=== PATIENT | female | born 1985 | race Caucasian/White ===

== ENCOUNTER 2017-02-28 08:42 | Inpatient (IN) | payer BC ==
[2017-02-28] MEDS ORDERED: Nalbuphine 10 MG/1 ML Vial IVPUSH PRN (08:49)
[2017-02-28] MEDS ORDERED: Butorphanol 1 MG/ML SDV IVPUSH PRN (08:49)
[2017-02-28] MEDS ORDERED: Lidocaine 1% 50 ML MDV INJECT PRN (08:49)
[2017-02-28] MEDS ORDERED: Water For Irrigation,Sterile 1,000 ML Container IRR PRN (08:49)
[2017-02-28] MEDS ORDERED: Sodium Chloride 0.9% 2.5 ML Syringe FLUSH PRN (08:49)
[2017-02-28] MEDS ORDERED: Misoprostol 200 MCG Tab PO PRN (08:49)
[2017-02-28] MEDS ORDERED: Sodium Chloride 0.9% 10 ML Syringe FLUSH PRN (08:49)
[2017-02-28] MEDS ORDERED: Carboprost Tromethamine 250 MCG/1 ML Amp IM PRN (08:49)
[2017-02-28] MEDS ORDERED: Methylergonovine 0.2 MG/1 ML Amp IM PRN (08:49)
[2017-02-28] MEDS ORDERED: Terbutaline 1 MG/ML SDV SUBCUT PRN (08:51)
[2017-02-28] MEDS ORDERED: Misoprostol 25 MCG (1/4 of 100 MCG) Tab VAG PRN (08:51)
[2017-02-28] MEDS ORDERED: Misoprostol 25 MCG (1/4 of 100 MCG) Tab VAG SCH (09:00)
[2017-02-28] MEDS ORDERED: Oxytocin/0.9 % Sodium Chloride 30 UNIT/500 ML BAG IV SCH (09:00)
[2017-02-28] MEDS: Lactated Ringers 1,000 ML IV SCH ×2 (14:56→16:38)
[2017-02-28] MEDS ORDERED: fentaNYL 100 MCG/2 ML SDV ONE (15:07)
[2017-02-28] MEDS ORDERED: Ropivacaine 100 ML ONE (15:07)
--- NOTE | 2017-02-28 16:29 | PCM.PREANE ---
Preanesthetic Assessment - Anesthesia/Transfusion/Family Hx Anesthesia History: Prior Anesthesia Without Reaction Family History of Anesthesia Reaction: No Transfusion History: No Prior Transfusion(s) - Review of Systems General: No Symptoms Pulmonary: No Symptoms Cardiovascular: No Symptoms Gastrointestinal: No Symptoms Neurological: No Symptoms (no Heparin for 30 hours) - Physical Assessment Height: 5 ft 6.5 in Weight: 212 lb Airway Class: Mallampati = 2 Dentition: Reports: Normal Dentition Thyro-Mental Finger Breadths: 3 Mouth Opening Finger Breadths: 3 ROM/Head Extension: Full Lungs: Clear to Auscultation, Normal Respiratory Effort Cardiovascular: Regular Rate, Regular Rhythm - Lab Values: Laboratory Last Values WBC 7.36 K/uL (4.0-11.0) 02/28/17 09:00 RBC 4.09 M/uL (4.30-5.90) L 02/28/17 09:00 Hgb 12.7 g/dL (12.0-16.0) 02/28/17 09:00 Hct 37.9 % (36.0-46.0) 02/28/17 09:00 MCV 92.7 fL (80.0-98.0) 02/28/17 09:00 MCH 31.1 pg (27.0-32.0) 02/28/17 09:00 MCHC 33.5 g/dL (31.0-37.0) 02/28/17 09:00 RDW Std Deviation 51.2 fl (28.0-62.0) 02/28/17 09:00 RDW Coeff of Willie 15 % (11.0-15.0) 02/28/17 09:00 Plt Count 233 K/uL (150-400) 02/28/17 09:00 MPV 10.00 fL (7.40-12.00) 02/28/17 09:00 Nucleated RBC % 0.0 /100WBC 02/28/17 09:00 Nucleated RBCs # 0 K/uL 02/28/17 09:00 Blood Type O POSITIVE 02/28/17 09:00 Antibody Screen NEGATIVE 02/28/17 09:00 - Allergies Allergies/Adverse Reactions: Allergies Allergy/AdvReac Type Severity Reaction Status Date / Time No Known Allergies Allergy Verified 02/22/15 22:27 - Acknowledgements Anesthesia Type Planned: Epidural Pt an Appropriate Candidate for the Planned Anesthesia: Yes Alternatives and Risks of Anesthesia Discussed w Pt/Guardian: Yes Pt/Guardian Understands and Agrees with Anesthesia Plan: Yes Additional Comments: PCEA for L&D. Patient has had them in the past and has done well. She is scheduled for induction of labor. 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: Psychiatric History: Reports: Other (See Below) Other Psychiatric History: dyslexia Hematologic History: Reports: Other (See Below) 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 - Infectious Disease History Infectious Disease History: Reports: Chicken Pox, Influenza - Past Surgical History HEENT Surgical History: Reports: Other (See Below) Other HEENT Surgeries/Procedures: wisdom teeth extracted Musculoskeletal Surgical History: Reports: Other (See Below) Other Musculoskeletal Surgeries/Procedures:: fatty lypoma removed right shoulder muscle-benign - SUBSTANCE USE Smoking Status *Q: Never Smoker Second Hand Smoke Exposure: No Recreational Drug Use History: No - HOME MEDS Home Medications: Home Meds Heparin Sodium,Porcine/PF [Heparin 1,000 Unit/10 (100/ml)] 5,000 unit SUBCUT 06/05 [History] Vit No.129/Iron/FA [ One Daily Tablet] 1 each PO 02/23/15 [ History] Acetaminophen [Tylenol Extra Strength] 1,000 mg PO Q4H PRN #30 tablet 02/24/15 [ Rx] Benzocaine/Menthol [Dermoplast Pain Relief 20%-0.5% [place]] 78 gm TOP ASDIRECTED PRN #1 canister 02/24/15 [Rx] Docusate Sodium [Colace] 100 mg PO BID PRN #30 cap 02/24/15 [Rx] Ibuprofen [Motrin] 400 mg PO Q4H PRN #30 tablet 02/24/15 [Rx] Lanolin [Lansinoh HPA] 7 g TOP ASDIRECTED PRN #1 tube 02/24/15 [Rx] - CURRENT (IN HOUSE) MEDS Current Meds: Current Medications Butorphanol Tartrate (Stadol) 1 mg IVPUSH Q1H PRN PRN Reason: Pain Carboprost Tromethamine (Hemabate Ds) 250 mcg IM ASDIRECTED PRN PRN Reason: Post Hemorrhage Lactated Ringer's (Ringers, Lactated) 1,000 mls @ 150 mls/hr IV ASDIRECTED ARNEL Last Admin: 02/28/17 14:56 Dose: 999 mls/hr Oxytocin/Sodium Chloride (Oxytocin 30 Unit/500 Ml-Ns) 30 unit in 500 mls @ 2 mls/hr IV TITRATE ARNEL; 2 MUNITS/MIN PRN Reason: Protocol Last Titration: 02/28/17 16:23 Dose: 4 munits/min, 4 mls/hr Lidocaine HCl (Xylocaine 1%) 50 ml INJECT .ONCE PRN PRN Reason: Laceration repair Methylergonovine Maleate (Methergine) 0.2 mg IM ASDIRECTED PRN PRN Reason: Post Hemorrhage Misoprostol (Cytotec) 200 mcg PO .ONCE PRN PRN Reason: Post Hemorrhage Misoprostol (Cytotec) 25 mcg VAG .ONCE ARNEL Last Admin: 02/28/17 09:40 Dose: 25 mcg Misoprostol (Cytotec) 25 mcg VAG Q4H PRN PRN Reason: Cervical Ripening Nalbuphine HCl (Nubain) 10 mg IVPUSH Q1H PRN PRN Reason: Pain (severe 7-10) Sodium Chloride (Saline Flush) 10 ml FLUSH ASDIRECTED PRN PRN Reason: Keep Vein Open Sodium Chloride (Saline Flush) 2.5 ml FLUSH ASDIRECTED PRN PRN Reason: Keep Vein Open Sterile Water (Sterile Water For Irrigation) 1,000 ml IRR ASDIRECTED PRN PRN Reason: delivery Terbutaline Sulfate (Brethine) 0.25 mg SUBCUT ASDIRECTED PRN PRN Reason: Tacysystole Discontinued Medications Fentanyl (Sublimaze) Confirm Administered Dose 100 mcg .ROUTE .STK-MED ONE Stop: 02/28/17 15:08 Ropivacaine (Naropin 0.2%) Confirm Administered Dose 100 mls @ as directed .ROUTE .STK-MED ONE Stop: 02/28/17 15:08
[2017-02-28] MEDS ORDERED: oxyCODONE 5 MG Tab PO PRN (20:41)
[2017-02-28] MEDS ORDERED: Witch Hazel Medicated Pads 40/Jar TOP PRN (20:41)
[2017-02-28] MEDS ORDERED: Docusate Sodium 100 MG Cap PO PRN (20:41)
[2017-02-28] MEDS ORDERED: Lanolin 100% Cream 7 GM Tube TOP PRN (20:41)
[2017-02-28] MEDS ORDERED: Bisacodyl 10 MG Supp RECTAL PRN (20:41)
[2017-02-28] MEDS ORDERED: Benzocaine/Menthol 20%-0.5% Spray 78 GM Cannister TOP PRN (20:41)
[2017-02-28] MEDS ORDERED: Acetaminophen 500 MG Tab PO PRN (20:41)
[2017-02-28] MEDS ORDERED: Ibuprofen 800 MG Tab PO PRN (20:41)
[2017-02-28] MEDS ORDERED: Ibuprofen 400 MG Tab PO PRN (20:41)
--- NOTE | 2017-03-01 01:12 | OR ---
SURGEON: Cherie Magallanes MD DATE OF PROCEDURE: 02/28/2017 PREOPERATIVE DIAGNOSES: 1. Term at 39 weeks' and 6 days'. 2. Positive thrombophilia screen. POSTOPERATIVE DIAGNOSES: 1. Term at 39 weeks' and 6 days'. 2. Positive thrombophilia screen. 3. Delivered. PROCEDURE: Spontaneous vaginal delivery. ANESTHESIA: Epidural. ESTIMATED BLOOD LOSS: 200 mL. COMPLICATIONS: None. DISPOSITION: Mother and baby stable in Labor and Delivery room, bonding. FINDINGS: Male , 3550 grams, score 8 and 8 at one and five minutes respectively. Clear amniotic fluid. Loose nuchal cord. Grossly normal placenta with 3-vessel cord. Intact perineum. BRIEF HISTORY: Nitza is a 31-year-old, G4, P2-0-1-2 who was admitted for elective induction of labor at 39 weeks' and 6 days' for positive thrombophilia screen, heterozygous for factor V Leiden, and MTHFR. This screening was performed a couple of years ago during her 1st due to positive family history of multiple members with both arterial and venous thrombosis. She has been on prophylactic anticoagulation based on perinatologist recommendation, which she tolerated well with no adverse effect. Her last dose of heparin was more than 12 hours prior to her induction of labor. She was admitted at about 9 o'clock this morning and she received 1 dose of Cytotec at 25 mcg and when she was reexamined 4 hours later she had made some cervical change and was having regular contractions, Oxytocin was then commenced, and she received epidural for pain management. Artificial rupture of membranes was performed with clear amniotic fluid noted. Thereafter, she progressed to full dilatation and commenced active pushing. She pushed quite well bringing the baby's head down to a +4 station over the next 3 contractions and was setup for delivery in modified dorsal lithotomy position. DESCRIPTION OF PROCEDURE: She had a spontaneous vaginal delivery of a live male in right occipitoposterior position, loose nuchal cord at delivery which was easily reduced, clear amniotic fluid at delivery. Anterior and posterior shoulders and the rest of the baby were delivered without difficulty. Baby was vigorous and cried spontaneously at . The oropharynx and the nostrils were bulb suctioned on the perineum and the baby was delivered onto the maternal abdomen. Delayed cord clamping was performed and the cord was subsequently cut by the grandmother of the baby. With delivery of the , oxytocin infusion was changed to titration for active management of 3rd stage of labor. Cord blood and gas samples were obtained. The placenta was delivered by controlled cord traction appeared to be complete and intact. Examination of the perineum revealed no lacerations. Vigorous uterine massage was performed and the uterus was found to be well-contracted below the umbilicus. The patient tolerated the procedure well. Sponge, instrument, and needle counts were correct at the end of the delivery. ADUMVIV / MODL /[id number] MTDD
--- NOTE | 2017-03-01 07:30 | PCM48HPAN ---
Post Anesthesia Note - EVALUATION WITHIN 48HRS OF ANESTHETIC Vital Signs in Normal Range: Yes Patient Participated in Evaluation: Yes Respiratory Function Stable: Yes Airway Patent: Yes Cardiovascular Function Stable: Yes Hydration Status Stable: Yes Pain Control Satisfactory: Yes Nausea and Vomiting Control Satisfactory: Yes Mental Status Recovered: Yes
--- NOTE | 2017-03-01 11:25 | PCM.PNPP ---
- General Info Date of Service: 03/01/17 Functional Status: Reports: Pain Controlled, Tolerating Diet, Ambulating, Urinating - Review of Systems General: Denies: Fever, Chills HEENT: Denies: Headaches Pulmonary: Denies: Shortness of Breath, Pleuritic Chest Pain Cardiovascular: Denies: Chest Pain, Palpitations, Dyspnea on Exertion Gastrointestinal: Denies: Abdominal Pain Genitourinary: Denies: Dysuria, Incontinence, Flank Pain Psychiatric: Denies: Depression, Mood Lability, Anxiety - General Info Date of Service: 03/01/17 - Patient Data Vital Signs - Most Recent: Last Vital Signs Temp 36.6 C 03/01/17 07:20 Pulse 68 03/01/17 07:20 Resp 18 03/01/17 07:20 BP 126/57 L 03/01/17 07:20 Pulse Ox 96 03/01/17 07:20 Weight - Most Recent: 212 lb Lab Results - Last 24 Hours: Laboratory Results - last 24 hr 03/01/17 Range/Units 05:09 Hgb 12.3 (12.0-16.0) g/dL Hct 36.8 (36.0-46.0) % Med Orders - Current: Current Medications Acetaminophen (Tylenol Extra Strength) 500 mg PO Q4H PRN PRN Reason: Pain Acetaminophen (Tylenol Extra Strength) 1,000 mg PO Q4H PRN PRN Reason: Pain Benzocaine/Menthol (Dermoplast Pain Relief 20%-0.5% [place]) 78 gm TOP ASDIRECTED PRN PRN Reason: Perineal Comfort Measure Last Admin: 03/01/17 05:24 Dose: 1 applic Bisacodyl (Dulcolax) 10 mg RECTAL .ONCE PRN PRN Reason: Constipation Docusate Sodium (Colace) 100 mg PO BID PRN PRN Reason: Constipation Emollient Ointment (Lansinoh Hpa) 0 gm TOP ASDIRECTED PRN PRN Reason: Sore Nipples Last Admin: 03/01/17 05:23 Dose: 1 applic Ibuprofen (Motrin) 400 mg PO Q4H PRN PRN Reason: Pain Ibuprofen (Motrin) 800 mg PO Q6H PRN PRN Reason: Pain Last Admin: 03/01/17 05:24 Dose: 800 mg Oxycodone HCl (Oxycodone) 5 mg PO Q2H PRN PRN Reason: Pain Witch Shanon (Tucks) 1 pad TOP ASDIRECTED PRN PRN Reason: comfort care Last Admin: 03/01/17 05:23 Dose: 1 applic Discontinued Medications Butorphanol Tartrate (Stadol) 1 mg IVPUSH Q1H PRN PRN Reason: Pain Carboprost Tromethamine (Hemabate Ds) 250 mcg IM ASDIRECTED PRN PRN Reason: Post Hemorrhage Fentanyl (Sublimaze) Confirm Administered Dose 100 mcg .ROUTE .[employer] [facility] ONE Stop: 02/28/17 15:08 Lactated Ringer's (Ringers, Lactated) 1,000 mls @ 150 mls/hr IV ASDIRECTED ARNEL Last Admin: 02/28/17 16:38 Dose: 150 mls/hr Oxytocin/Sodium Chloride (Oxytocin 30 Unit/500 Ml-Ns) 30 unit in 500 mls @ 2 mls/hr IV TITRATE ARNEL; 2 MUNITS/MIN PRN Reason: Protocol Last Titration: 02/28/17 20:45 Dose: Infused Ropivacaine (Naropin 0.2%) Confirm Administered Dose 100 mls @ as directed .ROUTE .[employer] ONE Stop: 02/28/17 15:08 Lidocaine HCl (Xylocaine 1%) 50 ml INJECT .ONCE PRN PRN Reason: Laceration repair Methylergonovine Maleate (Methergine) 0.2 mg IM ASDIRECTED PRN PRN Reason: Post Hemorrhage Misoprostol (Cytotec) 200 mcg PO .ONCE PRN PRN Reason: Post Hemorrhage Misoprostol (Cytotec) 25 mcg VAG .ONCE ARNEL Last Admin: 02/28/17 09:40 Dose: 25 mcg Misoprostol (Cytotec) 25 mcg VAG Q4H PRN PRN Reason: Cervical Ripening Nalbuphine HCl (Nubain) 10 mg IVPUSH Q1H PRN PRN Reason: Pain (severe 7-10) Sodium Chloride (Saline Flush) 10 ml FLUSH ASDIRECTED PRN PRN Reason: Keep Vein Open Sodium Chloride (Saline Flush) 2.5 ml FLUSH ASDIRECTED PRN PRN Reason: Keep Vein Open Sterile Water (Sterile Water For Irrigation) 1,000 ml IRR ASDIRECTED PRN PRN Reason: delivery Last Admin: 02/28/17 20:52 Dose: 1,000 ml Terbutaline Sulfate (Brethine) 0.25 mg SUBCUT ASDIRECTED PRN PRN Reason: Tacysystole - Infant Interaction Infant Interaction: Holding Infant Feeding: Breastfed Infant; Nursed Well, Continues to Breastfeed Support Person: - Recovery Exam Fundal Tone: Firm Fundal Level: 2 Fingerbreadths Below Umbilicus Fundal Placement: Midline Lochia Amount: Scant Lochia Color: Rubra/Red Perineum Description: Intact, Minimal Bruising/Swelling Episiotomy/Laceration: None Bladder Status: Voiding Urinary Elimination: Voided - Exam General: Alert, Oriented Neck: Supple Lungs: Clear to Auscultation, Normal Respiratory Effort Cardiovascular: Regular Rate, Regular Rhythm GI/Abdominal Exam: Normal Bowel Sounds Psy/Mental Status: Alert, Normal Affect, Normal Mood - Problem List & Annotations (1) Vaginal delivery SNOMED Code(s): 598048215 Code(s): O80 - ENCOUNTER FOR FULL-TERM UNCOMPLICATED DELIVERY Status: Acute Current Visit: No - Problem List Review Problem List Initiated/Reviewed/Updated: Yes - My Orders Last 24 Hours: My Active Orders 02/28/17 20:41 Patient Status [ADT] Routine May Shower [RC] ASDIRECTED Up ad [place] [RC] ASDIRECTED Vital Signs [RC] PER UNIT ROUTINE Acetaminophen [Tylenol Extra Strength] 1,000 mg PO Q4H PRN Acetaminophen [Tylenol Extra Strength] 500 mg PO Q4H PRN Benzocaine/Menthol [Dermoplast Pain Relief 20%-0.5% [place]] 78 gm TOP ASDIRECTED PRN Bisacodyl [Dulcolax] 10 mg RECTAL .ONCE PRN Docusate Sodium [Colace] 100 mg PO BID PRN Ibuprofen [Motrin] 400 mg PO Q4H PRN Ibuprofen [Motrin] 800 mg PO Q6H PRN Lanolin [Lansinoh HPA] See Dose Instructions TOP ASDIRECTED PRN Witch Shanon [Tucks] 1 pad TOP ASDIRECTED PRN oxyCODONE 5 mg PO Q2H PRN Assess Lochia [WOMSER] Per Unit Routine Assess Uterine Involution [WOMSER] Per Unit Routine Breast Pump [WOMSER] Per Unit Routine Peripheral IV Discontinue [OM.PC] Routine Resuscitation Status Routine 02/28/17 20:42 Perineal Care [OM.PC] Per Unit Routine 03/01/17 Breakfast Regular Diet [DIET] - Assessment Assessment:: PPD#1 s/p , stable and afebrile - Plan Plan:: Discharge instructions given Nothing in the vagina for 6 weeks Bleeding and infection precautions reviewed Continue PNV whilst breast feeding blues and depression S/S reviewed Follow up in 6 weeks for ppv
[2017-03-01] MEDS: Acetaminophen 500 MG Tab PO PRN ×2 (15:03→19:44)
[2017-03-01 19:52] VITALS: BP 129/65
== END 2017-03-01 22:45 | disposition home or self-care (01) | DRG 560 ==
LOC: MW.OBCHECK 08:42 → MW.OB 08:47 → MW.OBCHECK 08:49 → MW.OB 08:49 → OBSVTOIN 20:16
PROVIDERS: ADMIT Obstetrics & Gynecology; ATTEND Obstetrics & Gynecology
PROC: 10E0XZZ Delivery of Products of Conception, External Approach (ICD-10-PCS; principal; 2017-02-28)
PROC: 3E0P7VZ Introduction of Hormone into Female Reproductive, Via Natural or Artificial Opening (ICD-10-PCS; 2017-02-28)
PROC: 10907ZC Drainage of Amniotic Fluid, Therapeutic from Products of Conception, Via Natural or Artificial Opening (ICD-10-PCS; 2017-02-28)
PROC: 3E033VJ Introduction of Other Hormone into Peripheral Vein, Percutaneous Approach (ICD-10-PCS; 2017-02-28)
DX: O99.12 Other diseases of the blood and blood-forming organs and certain disorders involving the immune mechanism complicating childbirth (principal); D68.51 Activated protein C resistance; Z3A.39 39 weeks gestation of pregnancy; Z37.0 Single live birth
CPT/HCPCS: 36415; 51702; 59025; 59409; 85014; 85018; 85027; 86850; 86900; 86901; A9270-GY; J2590; J7120

== ENCOUNTER 2019-03-19 05:10 | Inpatient (IN) | payer BC ==
[2019-03-19] MEDS ORDERED: Sodium Chloride 0.9% 10 ML SDV IV PRN (05:14)
[2019-03-19] MEDS ORDERED: Misoprostol 200 MCG Tab PO PRN (05:14)
[2019-03-19] MEDS ORDERED: Ondansetron 4 MG/2 ML SDV IVPUSH PRN (05:14)
[2019-03-19] MEDS ORDERED: Tranexamic Acid 1,000 MG in Sodium Chloride 0.9% 100 ML IV PRN (05:14)
[2019-03-19] MEDS ORDERED: Water For Irrigation,Sterile 1,000 ML Container IRR PRN (05:14)
[2019-03-19] MEDS ORDERED: Carboprost Tromethamine 250 MCG/1 ML Amp IM PRN (05:14)
[2019-03-19] MEDS ORDERED: Butorphanol 1 MG/ML SDV IVPUSH PRN (05:14)
[2019-03-19] MEDS ORDERED: Terbutaline 1 MG/ML SDV SUBCUT PRN (05:14)
[2019-03-19] MEDS ORDERED: Lidocaine 1% 50 ML MDV INJECT PRN (05:14)
[2019-03-19] MEDS ORDERED: Sodium Chloride 0.9% 10 ML Syringe FLUSH PRN (05:14)
[2019-03-19] MEDS ORDERED: Methylergonovine 0.2 MG/1 ML Amp IM PRN (05:14)
[2019-03-19] MEDS ORDERED: Sodium Chloride 0.9% 2.5 ML Syringe FLUSH PRN (05:14)
[2019-03-19] MEDS ORDERED: Nalbuphine 10 MG/1 ML Vial IVPUSH PRN (05:14)
[2019-03-19] MEDS ORDERED: Oxytocin/0.9 % Sodium Chloride 30 UNIT/500 ML BAG IV SCH ×2 (05:15)
[2019-03-19] MEDS: Lactated Ringers 1,000 ML IV SCH ×3 (06:47→10:25)
[2019-03-19] MEDS ORDERED: fentaNYL 100 MCG/2 ML SDV ONE (07:11)
[2019-03-19] MEDS ORDERED: Ropivacaine HCl/PF 100 ML ONE (07:12)
--- NOTE | 2019-03-19 07:37 | PCM.PREANE ---
Preanesthetic Assessment - Anesthesia/Transfusion/Family Hx Anesthesia History: Prior Anesthesia Without Reaction Family History of Anesthesia Reaction: No Transfusion History: No Prior Transfusion(s) Other Type of Transfusion Reaction: Patient has known Factor V Deficiency. Has had prior epidurals (uneventful) - Physical Assessment NPO Status Date: 03/19/19 NPO Status Time: 00:05 Height: 1.68 m Weight: 98.883 kg ASA Class: 1 - Lab Values: Laboratory Last Values WBC 6.52 K/uL (4.0-11.0) 03/19/19 05:36 RBC 4.02 M/uL (4.30-5.90) L 03/19/19 05:36 Hgb 12.6 g/dL (12.0-16.0) 03/19/19 05:36 Hct 37.3 % (36.0-46.0) 03/19/19 05:36 MCV 92.8 fL (80.0-98.0) 03/19/19 05:36 MCH 31.3 pg (27.0-32.0) 03/19/19 05:36 MCHC 33.8 g/dL (31.0-37.0) 03/19/19 05:36 RDW Std Deviation 49.6 fl (28.0-62.0) 03/19/19 05:36 RDW Coeff of Willie 15 % (11.0-15.0) 03/19/19 05:36 Plt Count 245 K/uL (150-400) 03/19/19 05:36 MPV 10.30 fL (7.40-12.00) 03/19/19 05:36 Nucleated RBC % 0.0 /100WBC 03/19/19 05:36 Nucleated RBCs # 0 K/uL 03/19/19 05:36 Blood Type O POSITIVE 03/19/19 05:36 Antibody Screen NEGATIVE 03/19/19 05:36 - Allergies Allergies/Adverse Reactions: Allergies Allergy/AdvReac Type Severity Reaction Status Date / Time No Known Allergies Allergy Verified 09/14/17 09:44 - Acknowledgements Anesthesia Type Planned: Epidural Pt an Appropriate Candidate for the Planned Anesthesia: Yes Alternatives and Risks of Anesthesia Discussed w Pt/Guardian: Yes Pt/Guardian Understands and Agrees with Anesthesia Plan: Yes PreAnesthesia Questionnaire HEENT History: Reports: Impaired Vision, Other (See Below) Other HEENT History: glasses 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: Psychiatric History: Reports: Other (See Below) Other Psychiatric History: dyslexia Hematologic History: Reports: Other (See Below) 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 - Infectious Disease History Infectious Disease History: Reports: Chicken Pox - Past Surgical History HEENT Surgical History: Reports: Other (See Below) Other HEENT Surgeries/Procedures: wisdom teeth extracted Musculoskeletal Surgical History: Reports: Other (See Below) Other Musculoskeletal Surgeries/Procedures:: fatty lypoma removed right shoulder muscle-benign Dermatological Surgical History: Reports: Other (See Below) - SUBSTANCE USE Smoking Status *Q: Never Smoker Second Hand Smoke Exposure: No Recreational Drug Use History: No - HOME MEDS Home Medications: Home Meds Vit No.129/Iron/FA [ One Daily Tablet] 1 each PO DAILY [History] - CURRENT (IN HOUSE) MEDS Current Meds: Current Medications Butorphanol Tartrate (Stadol) 1 mg IVPUSH Q1H PRN PRN Reason: Pain Carboprost Tromethamine (Hemabate Ds) 250 mcg IM ASDIRECTED PRN PRN Reason: Post Hemorrhage Lactated Ringer's (Ringers, Lactated) 1,000 mls @ 150 mls/hr IV ASDIRECTED ARNEL Last Infusion: 03/19/19 06:50 Dose: 999 mls/hr Oxytocin/Sodium Chloride (Oxytocin 30 Unit/500 Ml-Ns) 30 unit in 500 mls @ 500 mls/hr IV TITRATE ARNEL Oxytocin/Sodium Chloride (Oxytocin 30 Unit/500 Ml-Ns) 30 unit in 500 mls @ 2 mls/hr IV TITRATE ARNEL; Protocol Tranexamic Acid 1,000 mg/ (Sodium Chloride) 110 mls @ 660 mls/hr IV ONETIME PRN PRN Reason: Bleeding Lidocaine HCl (Xylocaine 1%) 50 ml INJECT ONETIME PRN PRN Reason: Laceration repair Methylergonovine Maleate (Methergine) 0.2 mg IM ASDIRECTED PRN PRN Reason: Post Hemorrhage Misoprostol (Cytotec) 200 mcg PO ONETIME PRN PRN Reason: Post Hemorrhage Nalbuphine HCl (Nubain) 10 mg IVPUSH Q1H PRN PRN Reason: Pain (severe 7-10) Ondansetron HCl (Zofran) 4 mg IVPUSH Q6H PRN PRN Reason: Nausea/Vomiting Sodium Chloride (Saline Flush) 10 ml FLUSH ASDIRECTED PRN PRN Reason: Keep Vein Open Sodium Chloride (Saline Flush) 2.5 ml FLUSH ASDIRECTED PRN PRN Reason: Keep Vein Open Sodium Chloride (Normal Saline) 10 ml IV ASDIRECTED PRN PRN Reason: IV Use Sterile Water (Sterile Water For Irrigation) 1,000 ml IRR ASDIRECTED PRN PRN Reason: delivery Terbutaline Sulfate (Brethine) 0.25 mg SUBCUT ASDIRECTED PRN PRN Reason: Tacysystole Discontinued Medications Fentanyl (Sublimaze) Confirm Administered Dose 100 mcg .ROUTE .STK-MED ONE Stop: 03/19/19 07:12 Ropivacaine (Naropin 0.2%) Confirm Administered Dose 100 mls @ as directed .ROUTE .STK-MED ONE Stop: 03/19/19 07:13
--- NOTE | 2019-03-19 07:40 | PCM.PRNOTE ---
- Free Text/Narrative Note: Anes Note. Patient requests epidural for L&D> Sitting position, level L3-L4 midline approach. Sterile technique. Chloraprep scrub to lumbar area. Sterile fenestrated drape applied. Epidural space easily achieved using INDER technique. INDER at 5 cm. Cath threaded 5 cm with ease. Cath secured at skin at 11 cm using clear adhesive sterile dressing. 0727 test 3 cc 1.5% lido with epi negative. 0730 Load 10 cc 0.2% ropivicaine with 1 mcg cc fentanyl in slow divided doses. 0735 pump started wtih 90 cc same solution at 8 cc hr with 6 cc q 20 minutes prn bolus. Neli well. 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
[2019-03-19] MEDS ORDERED: oxyCODONE 5 MG Tab PO PRN (14:35)
[2019-03-19] MEDS ORDERED: Bisacodyl 10 MG Supp RECTAL PRN (14:35)
[2019-03-19] MEDS ORDERED: Acetaminophen 500 MG Tab PO PRN ×2 (14:35)
[2019-03-19] MEDS ORDERED: Lanolin 100% Cream 7 GM Tube TOP PRN (14:35)
[2019-03-19] MEDS ORDERED: Docusate Sodium 100 MG Cap PO PRN (14:35)
[2019-03-19] MEDS ORDERED: Ibuprofen 400 MG Tab PO PRN (14:35)
[2019-03-19] MEDS ORDERED: Benzocaine/Menthol 20%-0.5% Spray 78 GM Cannister TOP PRN (14:35)
[2019-03-19] MEDS ORDERED: Witch Hazel Medicated Pads 40/Jar TOP PRN (14:35)
--- NOTE | 2019-03-19 14:43 | PCM.DEL ---
L & D Note - General Info Date of Service: 03/19/19 Mother's Due Date: 02/23/19 - Delivery Note Labor: Spontaneous, Augmented by Oxytocin Delivery Outcome: Livebirth Presentation: Left Occiput Anterior (WILL) Nuchal Cord: None Anesthesia Type: Epidural Amniotic Fluid Description: Clear Episiotomy Type: None Laceration: None Placenta: Intact Resuscitation Needed: No Score 1 min: 8 Score 5 min: 9 Delivery Comments (Free Text/Narrative):: Live female delivered 209pm , 8/9 , weight 4120g - General Info Date of Service: 03/19/19 - Patient Data Weight - Most Recent: 98.883 kg Lab Results Last 24 Hours: Laboratory Results - last 24 hr 03/19/19 03/19/19 Range/Units 05:36 05:36 WBC 6.52 (4.0-11.0) K/uL RBC 4.02 L (4.30-5.90) M/uL Hgb 12.6 (12.0-16.0) g/dL Hct 37.3 (36.0-46.0) % MCV 92.8 (80.0-98.0) fL MCH 31.3 (27.0-32.0) pg MCHC 33.8 (31.0-37.0) g/dL RDW Std Deviation 49.6 (28.0-62.0) fl RDW Coeff of Willie 15 (11.0-15.0) % Plt Count 245 (150-400) K/uL MPV 10.30 (7.40-12.00) fL Nucleated RBC % 0.0 /100WBC Nucleated RBCs # 0 K/uL Blood Type O POSITIVE Antibody Screen NEGATIVE Med Orders - Current: Current Medications Acetaminophen (Tylenol Extra Strength) 500 mg PO Q4H PRN PRN Reason: Pain Acetaminophen (Tylenol Extra Strength) 1,000 mg PO Q4H PRN PRN Reason: Pain Benzocaine/Menthol (Dermoplast Pain Relief 20%-0.5% [place]) 78 gm TOP ASDIRECTED PRN PRN Reason: Perineal Comfort Measure Bisacodyl (Dulcolax) 10 mg RECTAL ONETIME PRN PRN Reason: Constipation Butorphanol Tartrate (Stadol) 1 mg IVPUSH Q1H PRN PRN Reason: Pain Carboprost Tromethamine (Hemabate Ds) 250 mcg IM ASDIRECTED PRN PRN Reason: Post Hemorrhage Docusate Sodium (Colace) 100 mg PO BID PRN PRN Reason: Constipation Emollient Ointment (Lansinoh Hpa) 0 gm TOP ASDIRECTED PRN PRN Reason: Sore Nipples Lactated Ringer's (Ringers, Lactated) 1,000 mls @ 150 mls/hr IV ASDIRECTED ARNEL Last Admin: 03/19/19 10:25 Dose: 150 mls/hr Oxytocin/Sodium Chloride (Oxytocin 30 Unit/500 Ml-Ns) 30 unit in 500 mls @ 500 mls/hr IV TITRATE [facility] Last Admin: 03/19/19 14:19 Dose: 500 mls/hr Oxytocin/Sodium Chloride (Oxytocin 30 Unit/500 Ml-Ns) 30 unit in 500 mls @ 2 mls/hr IV TITRATE [facility]; Protocol Last Titration: 03/19/19 12:25 Dose: 12 munits/min, 12 mls/hr Tranexamic Acid 1,000 mg/ (Sodium Chloride) 110 mls @ 660 mls/hr IV ONETIME PRN PRN Reason: Bleeding Ibuprofen (Motrin) 400 mg PO Q4H PRN PRN Reason: Pain Ibuprofen (Motrin) 800 mg PO Q6H PRN PRN Reason: Pain Lidocaine HCl (Xylocaine 1%) 50 ml INJECT ONETIME PRN PRN Reason: Laceration repair Methylergonovine Maleate (Methergine) 0.2 mg IM ASDIRECTED PRN PRN Reason: Post Hemorrhage Misoprostol (Cytotec) 200 mcg PO ONETIME PRN PRN Reason: Post Hemorrhage Nalbuphine HCl (Nubain) 10 mg IVPUSH Q1H PRN PRN Reason: Pain (severe 7-10) Ondansetron HCl (Zofran) 4 mg IVPUSH Q6H PRN PRN Reason: Nausea/Vomiting Last Admin: 03/19/19 13:47 Dose: 4 mg Oxycodone HCl (Oxycodone) 5 mg PO Q2H PRN PRN Reason: Pain Sodium Chloride (Saline Flush) 10 ml FLUSH ASDIRECTED PRN PRN Reason: Keep Vein Open Sodium Chloride (Saline Flush) 2.5 ml FLUSH ASDIRECTED PRN PRN Reason: Keep Vein Open Sodium Chloride (Normal Saline) 10 ml IV ASDIRECTED PRN PRN Reason: IV Use Sterile Water (Sterile Water For Irrigation) 1,000 ml IRR ASDIRECTED PRN PRN Reason: delivery Last Admin: 03/19/19 14:36 Dose: 1,000 ml Terbutaline Sulfate (Brethine) 0.25 mg SUBCUT ASDIRECTED PRN PRN Reason: Tacysystole Witch Shanon (Tucks) 1 pad TOP ASDIRECTED PRN PRN Reason: comfort care Discontinued Medications Fentanyl (Sublimaze) Confirm Administered Dose 100 mcg .ROUTE .STK-MED ONE Stop: 03/19/19 07:12 Ropivacaine (Naropin 0.2%) Confirm Administered Dose 100 mls @ as directed .ROUTE .Nala-MED ONE Stop: 03/19/19 07:13 - Problem List & Annotations (1) Vaginal delivery SNOMED Code(s): 666008472 Code(s): O80 - ENCOUNTER FOR FULL-TERM UNCOMPLICATED DELIVERY Status: Acute Current Visit: No - Problem List Review Problem List Initiated/Reviewed/Updated: Yes - My Orders Last 24 Hours: My Active Orders 03/19/19 05:14 Patient Status [ADT] Routine Bedrest Bathroom Privileges [RC] ASDIRECTED Communication Order [RC] ASDIRECTED Communication Order [RC] ASDIRECTED Non Stress Test [RC] PER UNIT ROUTINE Notify Provider [RC] PRN Notify Provider [RC] STAT Oxygen Therapy [RC] ASDIRECTED Vaginal Exam [RC] PRN Vital Signs [RC] PER UNIT ROUTINE Butorphanol [Stadol] 1 mg IVPUSH Q1H PRN Carboprost Tromethamine [Hemabate DS] 250 mcg IM ASDIRECTED PRN Lidocaine 1% [Xylocaine 1%] 50 ml INJECT ONETIME PRN Methylergonovine [Methergine] 0.2 mg IM ASDIRECTED PRN Nalbuphine [Nubain] 10 mg IVPUSH Q1H PRN Ondansetron [Zofran] 4 mg IVPUSH Q6H PRN Sodium Chloride 0.9% [Normal Saline] 10 ml IV ASDIRECTED PRN Sodium Chloride 0.9% [Saline Flush] 10 ml FLUSH ASDIRECTED PRN Sodium Chloride 0.9% [Saline Flush] 2.5 ml FLUSH ASDIRECTED PRN Terbutaline [Brethine] 0.25 mg SUBCUT ASDIRECTED PRN Tranexamic Acid [Cyklokapron] 1,000 mg Sodium Chloride 0.9% [Normal Saline] 100 ml IV ONETIME Water For Irrigation,Sterile [Sterile Water for Irrigation] 1,000 ml IRR ASDIRECTED PRN miSOPROStoL [Cytotec] 200 mcg PO ONETIME PRN Scalp Electrode [WOMSER] Per Unit Routine Peripheral IV Insertion Adult [OM.PC] Routine 03/19/19 05:15 Lactated Ringers [Ringers, Lactated] 1,000 ml IV ASDIRECTED Oxytocin/0.9 % Sodium Chloride [Oxytocin 30 Unit/500 ML-NS] 30 unit in 500 ml IV TITRATE Oxytocin/0.9 % Sodium Chloride [Oxytocin 30 Unit/500 ML-NS] 30 unit in 500 ml IV TITRATE Medication Administration Instruction [OM.PC] Q3H 03/19/19 05:36 RPR (SYPHILIS SERO) W/ RFLX [REF] Routine 03/19/19 14:35 Patient Status [ADT] Routine May Shower [RC] ASDIRECTED Up ad Dixie [RC] ASDIRECTED Vital Signs [RC] PER UNIT ROUTINE Acetaminophen [Tylenol Extra Strength] 1,000 mg PO Q4H PRN Acetaminophen [Tylenol Extra Strength] 500 mg PO Q4H PRN Benzocaine/Menthol [Dermoplast Pain Relief 20%-0.5% [place]] 78 gm TOP ASDIRECTED PRN Docusate Sodium [Colace] 100 mg PO BID PRN Ibuprofen [Motrin] 400 mg PO Q4H PRN Ibuprofen [Motrin] 800 mg PO Q6H PRN Lanolin [Lansinoh HPA] See Dose Instructions TOP ASDIRECTED PRN Witch Shanon [Tucks] 1 pad TOP ASDIRECTED PRN bisacodyL [Dulcolax] 10 mg RECTAL ONETIME PRN oxyCODONE 5 mg PO Q2H PRN Assess Lochia [WOMSER] Per Unit Routine Assess Uterine Involution [WOMSER] Per Unit Routine Peripheral IV Discontinue [OM.PC] Routine Resuscitation Status Routine 03/19/19 Breakfast Clear Liquid Diet [DIET] 03/20/19 05:11 BASIC METABOLIC PANEL,BMP [CHEM] AM HEMOGLOBIN/HEMATOCRIT,HH [HEME] Timed
--- NOTE | 2019-03-19 18:59 | OR ---
SURGEON: RANGEL PRATER DATE OF PROCEDURE:03/19/2019 PREOPERATIVE DIAGNOSIS: A 33-year-old, G5, P 3-0-1-3, at 39 weeks for induction of labor for factor V Leiden deficiency, group B streptococcus negative. POSTOPERATIVE DIAGNOSIS: A 33-year-old, G5, P 3-0-1-3, at 39 weeks for induction of labor for factor V Leiden deficiency, group B streptococcus negative. PROCEDURE: Normal spontaneous vaginal delivery. ESTIMATED BLOOD LOSS: 400. IV FLUID: Pitocin running. ANESTHESIA: Epidural. NOTES AND FINDING: A live female delivered at 2:09 p.m. score is 8 and 9. Weight is 4120 g. BRIEF HISTORY: A 33-year-old, G5, P 3-0-1-3 at 39 weeks 0 days who opts for induction of labor secondary to factor V Leiden deficiency. She was on Lovenox initially in the and switched to heparin at 36 weeks. She had the last dose of heparin 24 hours before the commencement of the induction of labor. She was 4 cm when she came in. Induction of labor was started with Pitocin. The patient received epidural, and the patient had made change to 5 cm. She was ruptured, clear fluid was noted. She had a normal labor course and was AROM'ed. The patient was fully dilated. With the patient fully dilated, she was encouraged to push. DESCRIPTION OF PROCEDURE: With good pushing effort, she delivered the head, subsequently by the anterior and posterior shoulder. The body of the was delivered. was placed on the maternal abdomen. Delayed cord clamping was observed. Cord blood gases were obtained. The placenta was delivered via controlled cord traction. The perineum was inspected, noted to be intact. Pitocin was started, was running. All instrument and pad counts were correct x2. The patient tolerated the procedure well and was left in the delivery room in stable condition. AYE BRANDON /[id number] MTDD
[2019-03-19] MEDS: Ibuprofen 800 MG Tab PO PRN (23:07)
[2019-03-20 06:56] LABS: BLOOD UREA NITROGEN,BUN 8 mg/dL (7.0-18.0); CARBON DIOXIDE,CO2 26.6 mmol/L (21.0-32.0); CHLORIDE,CL 106 mmol/L (98-107); GLUCOSE RANDOM 72 mg/dL (74-106); POTASSIUM,K 4.4 mmol/L (3.5-5.1); SODIUM,NA 140 mmol/L (136-145)
--- NOTE | 2019-03-20 08:24 | PCM48HPAN ---
Post Anesthesia Note - EVALUATION WITHIN 48HRS OF ANESTHETIC Vital Signs in Normal Range: Yes Patient Participated in Evaluation: Yes Respiratory Function Stable: Yes Airway Patent: Yes Cardiovascular Function Stable: Yes Hydration Status Stable: Yes Pain Control Satisfactory: Yes Nausea and Vomiting Control Satisfactory: Yes Mental Status Recovered: Yes Vital Signs: Last Vital Signs Temp 36.5 C 03/20/19 04:49 Pulse 58 L 03/20/19 04:49 Resp 16 03/20/19 04:49 BP 103/47 L 03/20/19 04:49 Pulse Ox 99 03/20/19 04:49 - COMMENTS/OBSERVATIONS Free Text/Narrative:: NO anesthesia complications noted.
[2019-03-20] MEDS ORDERED: Enoxaparin 40 MG/0.4 ML Syringe SUBCUT ONE (08:26)
--- NOTE | 2019-03-20 08:57 | PCM.PNPP ---
- General Info Date of Service: 03/20/19 Subjective Update: 33yo P4 s/p PPD1 , denies any complains Ambulating , voiding and Functional Status: Reports: Pain Controlled, Tolerating Diet, Ambulating, Urinating - Review of Systems General: Reports: No Symptoms HEENT: Reports: No Symptoms Pulmonary: Reports: No Symptoms Cardiovascular: Reports: No Symptoms Gastrointestinal: Reports: No Symptoms Genitourinary: Reports: No Symptoms Musculoskeletal: Reports: No Symptoms Skin: Reports: No Symptoms Neurological: Reports: No Symptoms Psychiatric: Reports: No Symptoms - General Info Date of Service: 03/20/19 - Patient Data Vital Signs - Most Recent: Last Vital Signs Temp 36.5 C 03/20/19 04:49 Pulse 58 L 03/20/19 04:49 Resp 16 03/20/19 04:49 BP 103/47 L 03/20/19 04:49 Pulse Ox 99 03/20/19 04:49 Weight - Most Recent: 98.883 kg Lab Results - Last 24 Hours: Laboratory Results - last 24 hr 03/20/19 03/20/19 Range/Units 05:40 05:40 Hgb 12.2 (12.0-16.0) g/dL Hct 36.7 (36.0-46.0) % Sodium 140 (136-145) mmol/L Potassium 4.4 (3.5-5.1) mmol/L Chloride 106 (98-107) mmol/L Carbon Dioxide 26.6 (21.0-32.0) mmol/L BUN 8 (7.0-18.0) mg/dL Creatinine 0.8 (0.6-1.0) mg/dL Est Cr Clr Drug Dosing 91.88 mL/min Estimated GFR (MDRD) > 60.0 ml/min Glucose 72 L (74-106) mg/dL Calcium 8.5 (8.5-10.1) mg/dL Med Orders - Current: Current Medications Acetaminophen (Tylenol Extra Strength) 500 mg PO Q4H PRN PRN Reason: Pain Acetaminophen (Tylenol Extra Strength) 1,000 mg PO Q4H PRN PRN Reason: Pain Benzocaine/Menthol (Dermoplast Pain Relief 20%-0.5% [place]) 78 gm TOP ASDIRECTED PRN PRN Reason: Perineal Comfort Measure Bisacodyl (Dulcolax) 10 mg RECTAL ONETIME PRN PRN Reason: Constipation Butorphanol Tartrate (Stadol) 1 mg IVPUSH Q1H PRN PRN Reason: Pain Carboprost Tromethamine (Hemabate Ds) 250 mcg IM ASDIRECTED PRN PRN Reason: Post Hemorrhage Docusate Sodium (Colace) 100 mg PO BID PRN PRN Reason: Constipation Emollient Ointment (Lansinoh Hpa) 0 gm TOP ASDIRECTED PRN PRN Reason: Sore Nipples Lactated Ringer's (Ringers, Lactated) 1,000 mls @ 150 mls/hr IV ASDIRECTED ARNEL Last Admin: 03/19/19 10:25 Dose: 150 mls/hr Oxytocin/Sodium Chloride (Oxytocin 30 Unit/500 Ml-Ns) 30 unit in 500 mls @ 500 mls/hr IV TITRATE [facility] Last Admin: 03/19/19 14:19 Dose: 500 mls/hr Oxytocin/Sodium Chloride (Oxytocin 30 Unit/500 Ml-Ns) 30 unit in 500 mls @ 2 mls/hr IV TITRATE [facility]; Protocol Last Titration: 03/19/19 12:25 Dose: 12 munits/min, 12 mls/hr Tranexamic Acid 1,000 mg/ (Sodium Chloride) 110 mls @ 660 mls/hr IV ONETIME PRN PRN Reason: Bleeding Ibuprofen (Motrin) 400 mg PO Q4H PRN PRN Reason: Pain Ibuprofen (Motrin) 800 mg PO Q6H PRN PRN Reason: Pain Last Admin: 03/19/19 23:07 Dose: 800 mg Lidocaine HCl (Xylocaine 1%) 50 ml INJECT ONETIME PRN PRN Reason: Laceration repair Methylergonovine Maleate (Methergine) 0.2 mg IM ASDIRECTED PRN PRN Reason: Post Hemorrhage Misoprostol (Cytotec) 200 mcg PO ONETIME PRN PRN Reason: Post Hemorrhage Nalbuphine HCl (Nubain) 10 mg IVPUSH Q1H PRN PRN Reason: Pain (severe 7-10) Ondansetron HCl (Zofran) 4 mg IVPUSH Q6H PRN PRN Reason: Nausea/Vomiting Last Admin: 03/19/19 13:47 Dose: 4 mg Oxycodone HCl (Oxycodone) 5 mg PO Q2H PRN PRN Reason: Pain Sodium Chloride (Saline Flush) 10 ml FLUSH ASDIRECTED PRN PRN Reason: Keep Vein Open Sodium Chloride (Saline Flush) 2.5 ml FLUSH ASDIRECTED PRN PRN Reason: Keep Vein Open Sodium Chloride (Normal Saline) 10 ml IV ASDIRECTED PRN PRN Reason: IV Use Sterile Water (Sterile Water For Irrigation) 1,000 ml IRR ASDIRECTED PRN PRN Reason: delivery Last Admin: 03/19/19 14:36 Dose: 1,000 ml Terbutaline Sulfate (Brethine) 0.25 mg SUBCUT ASDIRECTED PRN PRN Reason: Tacysystole Witch Shanon (Tucks) 1 pad TOP ASDIRECTED PRN PRN Reason: comfort care Discontinued Medications Enoxaparin Sodium (Lovenox) 40 mg SUBCUT ONETIME ONE Stop: 03/20/19 08:27 Fentanyl (Sublimaze) Confirm Administered Dose 100 mcg .ROUTE .STK-MED ONE Stop: 03/19/19 07:12 Ropivacaine (Naropin 0.2%) Confirm Administered Dose 100 mls @ as directed .ROUTE .STK-MED ONE Stop: 03/19/19 07:13 - Infant Interaction Support Person: - Recovery Exam Fundal Tone: Firm Fundal Level: 1 Fingerbreadths Below Umbilicus Fundal Placement: Midline Lochia Amount: Scant Lochia Color: Rubra/Red Perineum Description: Intact, Minimal Bruising/Swelling Episiotomy/Laceration: None Bladder Status: Voiding Urinary Elimination: Voided - Exam General: Alert HEENT: Pupils Equal Lungs: Clear to Auscultation Cardiovascular: Regular Rate, Regular Rhythm GI/Abdominal Exam: Normal Bowel Sounds Neurological: No New Focal Deficit Psy/Mental Status: Alert - Problem List & Annotations (1) Vaginal delivery SNOMED Code(s): 075820127 Code(s): O80 - ENCOUNTER FOR FULL-TERM UNCOMPLICATED DELIVERY Status: Acute Current Visit: No - Problem List Review Problem List Initiated/Reviewed/Updated: Yes - My Orders Last 24 Hours: My Active Orders 03/19/19 14:35 Patient Status [ADT] Routine May Shower [RC] ASDIRECTED Up ad [place] [RC] ASDIRECTED Vital Signs [RC] PER UNIT ROUTINE Acetaminophen [Tylenol Extra Strength] 1,000 mg PO Q4H PRN Acetaminophen [Tylenol Extra Strength] 500 mg PO Q4H PRN Benzocaine/Menthol [Dermoplast Pain Relief 20%-0.5% [place]] 78 gm TOP ASDIRECTED PRN Docusate Sodium [Colace] 100 mg PO BID PRN Ibuprofen [Motrin] 400 mg PO Q4H PRN Ibuprofen [Motrin] 800 mg PO Q6H PRN Lanolin [Lansinoh HPA] See Dose Instructions TOP ASDIRECTED PRN Witch Shanon [Tucks] 1 pad TOP ASDIRECTED PRN bisacodyL [Dulcolax] 10 mg RECTAL ONETIME PRN oxyCODONE 5 mg PO Q2H PRN Assess Lochia [WOMSER] Per Unit Routine Assess Uterine Involution [WOMSER] Per Unit Routine Peripheral IV Discontinue [OM.PC] Routine Resuscitation Status Routine 03/20/19 Breakfast Regular Diet [DIET] - Assessment Assessment:: 33yo P4 s/p PPD1 ,Factor 5 deficiency , Normal lochia - Plan Plan:: Plan Start Lovenox today Routine Discharge home today
[2019-03-20] MEDS: Ibuprofen 800 MG Tab PO PRN (09:18)
[2019-03-20 09:45] VITALS: BP 121/58; PULSE 64
== END 2019-03-20 17:00 | disposition home or self-care (01) | DRG 560 ==
LOC: MW.OBCHECK 05:10 → MW.OB 05:11 → MW.OBCHECK 05:14 → MW.OB 10:20 → OBSVTOIN 14:09 → MW.OB 18:34
PROVIDERS: ADMIT Obstetrics & Gynecology; ATTEND Obstetrics & Gynecology
PROC: 10E0XZZ Delivery of Products of Conception, External Approach (ICD-10-PCS; principal; 2019-03-19)
PROC: 10907ZC Drainage of Amniotic Fluid, Therapeutic from Products of Conception, Via Natural or Artificial Opening (ICD-10-PCS; 2019-03-19)
PROC: 3E033VJ Introduction of Other Hormone into Peripheral Vein, Percutaneous Approach (ICD-10-PCS; 2019-03-19)
PROC: 3E0R3BZ Introduction of Anesthetic Agent into Spinal Canal, Percutaneous Approach (ICD-10-PCS; 2019-03-19)
PROC: 00HU33Z Insertion of Infusion Device into Spinal Canal, Percutaneous Approach (ICD-10-PCS; 2019-03-19)
DX: O99.12 Other diseases of the blood and blood-forming organs and certain disorders involving the immune mechanism complicating childbirth (principal); D68.51 Activated protein C resistance; Z3A.39 39 weeks gestation of pregnancy; Z37.0 Single live birth
CPT/HCPCS: 01967; 36415; 51702; 59025; 59409; 80048; 85014; 85018; 85027; 86592; 86850; 86900; 86901; A9270-GY; J1650; J2405; J2590; J7120

== ENCOUNTER 2019-06-01 21:36 | Emergency (ER) | payer BC ==
[2019-06-01 21:54] VITALS: BP 147/64; PULSE 67
--- NOTE | 2019-06-01 21:58 | EDM.PDOC ---
ED HPI GENERAL MEDICAL PROBLEM - General Chief Complaint: ENT Problem Stated Complaint: SORE THROAT Time Seen by Provider: 06/01/19 21:50 Source of Information: Reports: Patient - History of Present Illness INITIAL COMMENTS - FREE TEXT/NARRATIVE: The patient is a 33-year-old female presents to the ER for throat pain. She states that for the past couple of days she has noticed a swollen area on her neck on the right side, and she also feels like something is draining in the back of her throat and it is very tender. No coughing, no fevers, no nausea or vomiting, no trouble breathing or any other acute complaints. She has taken some [id number] Tylenol but nothing else. 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: Psychiatric History: Reports: Other (See Below) Other Psychiatric History: dyslexia Hematologic History: Reports: Other (See Below) 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 - Infectious Disease History Infectious Disease History: Reports: Chicken Pox - Past Surgical History HEENT Surgical History: Reports: Other (See Below) Other HEENT Surgeries/Procedures: wisdom teeth extracted Musculoskeletal Surgical History: Reports: Other (See Below) Other Musculoskeletal Surgeries/Procedures:: fatty lypoma removed right shoulder muscle-benign Dermatological Surgical History: Reports: Other (See Below) Social & Family History - Family History HEENT: Reports: Hearing Impairment, Impaired Vision Cardiac: Reports: Blood Clots/VTE/DVT, Heart Murmur, MS GI: Reports: Chronic Constipation OBGYN: Reports: Neurological: Reports: Parkinson's Psychiatric: Reports: Learning Disability, Other (See Below) Other Psychiatric Family History: dyslexia Hematologic: Reports: Bleeding Disorder, Other (See Below) Other Hematologic Family History: clotting disorder Oncologic: Reports: Skin - Caffeine Use Caffeine Use: Reports: Coffee ED ROS ENT - Review of Systems Review Of Systems: See Below (Positive for sore throat, positive for right ear pain, negative for cough, negative for fever, all other Positives and pertinent negatives as per HPI. All other pertinent systems were reviewed and are negative ) ED EXAM, ENT - Physical Exam Exam: See Below Text/Narrative:: Constitutional: No acute distress, Non-toxic appearance. HEENT: Normocephalic, Atraumatic, PERRL, EOMI, right ear and external canal are unremarkable, oropharynx is widely patent, dentition and gingiva do not show any acute changes, there is no discharge but the right tonsil is inflamed and tender, uvula is midline, no exudates, no purulence Neck: Normal range of motion, No stridor, trachea midline, right-sided cervical adenopathy Respiratory: No respiratory distress, No tachypnea Cardiovascular: Deferred Gastrointestinal: Deferred Genital / Urinary: Deferred Musculoskeletal: All four extremities present and atraumatic Back: FROM Integument: Warm, Dry, Color is ethnicity appropriate, No rash. Neuro: Alert, Awake, No focal deficits noted Psych: Affect, Judgement, mood normal Course - Vital Signs Text/Narrative:: Centor score is 2. Given the obvious inflammatory changes of the right tonsil along with the cervical adenopathy and no cough a strep screen was performed. Strep screen is negative so symptomatic care was described to the patient in detail. Stable for discharge. Last Recorded V/S: Last Vital Signs Temp 36.6 C 06/01/19 21:50 Pulse 67 06/01/19 21:50 Resp 16 06/01/19 21:50 BP 147/64 H 06/01/19 21:50 Pulse Ox 97 06/01/19 21:50 - Orders/Labs/Meds Orders: Active Orders 24 hr Category Date Time Status CULTURE STREP A CONFIRMATION [RM] Stat Lab 06/01/19 21:56 Results STREP SCRN A RAPID W CULT CONF [RM] Stat Lab 06/01/19 21:56 Results Departure - Departure Time of Disposition: 22:54 Disposition: Home, Self-Care 01 Condition: Good Clinical Impression: Pharyngitis - Discharge Information Instructions: Sore Throat, [id number] Referrals: Temitope Chavez MD [Primary Care Provider] - Forms: ED Department Discharge Sepsis Event Note - Evaluation Sepsis Screening Result: No Definite Risk - Focused Exam Vital Signs: Vital Signs Temp Pulse Resp BP Pulse Ox 06/01/19 21:50 36.6 C 67 16 147/64 H 97 Date Exam was Performed: 06/01/19 Time Exam was Performed: 22:50 - My Orders Last 24 Hours: My Active Orders 06/01/19 21:56 CULTURE STREP A CONFIRMATION [RM] Stat STREP SCRN A RAPID W CULT CONF [] Stat - Assessment/Plan Last 24 Hours: My Active Orders 06/01/19 21:56 CULTURE STREP A CONFIRMATION [RM] Stat STREP SCRN A RAPID W CULT CONF [] Stat
== END 2019-06-01 23:04 | disposition home or self-care (01) ==
LOC: MW.ED 21:36
DX: J02.9 Acute pharyngitis, unspecified (principal)
CPT/HCPCS: 87081; 87880-QW; 99282; 99283